=== PATIENT | female | born 1945 | race Caucasian/White ===

== ENCOUNTER 2016-10-01 11:23 | Outpatient (CLI) ==
[2016-10-01] MEDS ORDERED: LIDOCAINE 1 % AMP 5 ML (SUTURES) IM STA (11:42)
[2016-10-01] MEDS ORDERED: ROCEPHIN IM STA (11:42)
[2016-10-01] MEDS ORDERED: DECADRON 4 MG/ML SDV IM STA (11:42)
[2016-10-01] MEDS ORDERED: DECADRON IM STA (11:43)
[2016-10-01 12:03] VITALS: BP 126/78
== END 2016-10-01 11:24 | disposition home or self-care (01) ==
LOC: OUTPT 11:23
PROVIDERS: ATTEND Family Medicine
DX: J20.9 Acute bronchitis, unspecified (principal)
CPT/HCPCS: 96372

== ENCOUNTER 2016-10-02 10:37 | Outpatient (CLI) ==
[2016-10-02] MEDS ORDERED: LIDOCAINE 1 % AMP 5 ML (SUTURES) IM STA (10:44)
[2016-10-02] MEDS ORDERED: ROCEPHIN IM STA (10:44)
== END 2016-10-02 10:38 | disposition home or self-care (01) ==
LOC: NONPT 10:37
PROVIDERS: ATTEND Family Medicine
DX: J20.9 Acute bronchitis, unspecified (principal)
CPT/HCPCS: 96372

== ENCOUNTER 2017-02-27 13:19 | Outpatient (CLI) ==
--- NOTE | 2017-02-27 13:56 | DI ---
Exam: Three x-rays of the left foot. Comparison: None available. Reason for exam: Pain. FINDINGS: No acute fracture or dislocation. The joint spaces are well maintained. There is mild d egenerative disease seen in the distal interphalangeal joint spaces and a small calcaneal enthesioph yte. No abnormal soft tissue swelling or radiopaque retained foreign bodies. 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
== END 2017-02-27 13:20 | disposition home or self-care (01) ==
LOC: RAD 13:19
PROVIDERS: ATTEND Family Medicine
DX: R52 Pain, unspecified (principal)